=== PATIENT | male | born 1985 | race Hispanic/Latino ===

== ENCOUNTER 2018-04-07 22:06 | Emergency (ER) | payer OTHER ==
[2018-04-07 23:05] LABS: RAPID GROUP A STREP NEGATIVE (NEGATIVE)
[2018-04-07] MEDS ORDERED: KETOROLAC TROMETHAMINE 60 MG/2 ML VIAL ONE (23:35)
== END 2018-04-08 00:14 | disposition home or self-care (01) ==
LOC: EDH 22:06
DX: J02.9 Acute pharyngitis, unspecified (principal)
CPT/HCPCS: 70360; 87804 ×2; 87880; 96372; 99285; J1885

== ENCOUNTER 2020-09-20 22:10 | Emergency (ER) | payer SELFPAY ==
[2020-09-20] MEDS ORDERED: DIAZEPAM 5 MG TABLET ONE (23:05)
[2020-09-20] MEDS ORDERED: FENTANYL CITRATE PF 50 MCG/1 ML 2ML VIAL ONE (23:06)
[2020-09-20] MEDS ORDERED: DEXAMETHASONE SOD PHOSPHATE 10MG/ML 1ML VIAL ONE (23:25)
== END 2020-09-20 23:43 | disposition home or self-care (01) ==
LOC: EDH 22:10
DX: M54.41 Lumbago with sciatica, right side (principal)
CPT/HCPCS: 96372 ×2; 99284; J1100; J3010

== ENCOUNTER 2020-09-29 10:08 | Emergency (ER) | payer OTHER | END 2020-09-29 11:49 | disposition left against medical advice (07) | LOC: EDH 10:08 | DX: R10.9 Unspecified abdominal pain (principal); Z53.21 Procedure and treatment not carried out due to patient leaving prior to being seen by health care provider ==